=== PATIENT | female | born 1940 | race Caucasian/White ===

== ENCOUNTER 2016-12-27 08:33 | Day surgery (SDC) | payer MEDICARE, BC ==
--- NOTE | ~2016-12-27 | EGD ---
EGD REPORT [facility] [address] [address] NAME: GENESIS TORRE : [birth year] STATUS : REG [facility]#: [id number] AGE: 76 ADM/REG DATE : 12/27/16 MR#: [id number] REPORT SERV DATE: 12/27/16 DICTATED BY: NONA HERNANDES DATE: 12/27/16 REPORT STATUS : Draft TRANSCRIBED BY: [employer] DATE: 12/27/16 [facility] Center Patient Name: Genesis Torre Date of : 1940 Attending MD: NONA HERNANDES MD Procedure Date No Time: 12/27/2016 Procedure: Colonoscopy Indications: Clinically significant diarrhea of unexplained origin, Rectal bleeding, Fecal incontinence Referring MD: ALEJANDRO MEI MD Medicines: as per anesthesia Complications: No immediate complications. Procedure: Pre-Anesthesia Assessment: - ASA Grade Assessment: III - A patient with severe systemic disease. After I obtained informed consent, the scope was passed under direct vision. Throughout the procedure, the patient's blood pressure, pulse, and oxygen saturations were monitored continuously. The PCF [id number] was introduced through the anus and advanced to the cecum, identified by appendiceal orifice and ileocecal valve. The colonoscopy was somewhat difficult due to restricted mobility of the colon, significant looping and a tortuous colon. The patient tolerated the procedure. The quality of the bowel preparation was adequate to identify polyps. Findings: The perianal and digital rectal examinations were normal. Internal hemorrhoids were found during endoscopy and were mild. Four biopsies were obtained in the rectum and in the ascending colon with cold forceps for histology. Impression: - Internal hemorrhoids. - Four biopsies were obtained in the rectum and in the ascending colon. Recommendation: - Await pathology results. Procedure Code(s): --- Professional --- 27564, Colonoscopy, flexible, proximal to splenic flexure; with biopsy, single or multiple Diagnosis Code(s): --- Professional --- K64.8, Other hemorrhoids EGD REPORT [facility] [address] [address] NAME: GENESIS TORRE : [birth year] STATUS : REG [facility] PAT#: [id number] AGE: 76 ADM/REG DATE : 12/27/16 MR#: [id number] REPORT SERV DATE: 12/27/16 DICTATED BY: NONA HERNANDES. DATE: 12/27/16 REPORT STATUS : Draft TRANSCRIBED BY: [employer] DATE: 12/27/16 R19.7, Diarrhea, unspecified K62.5, Hemorrhage of anus and rectum R15.9, Full incontinence of feces CPT copyright 2013 [employer]. All rights reserved. The codes documented in this report are preliminary and upon wage and salary administrator review may be revised to meet current compliance requirements. NONA HERNANDES MD 12/27/2016 11:35 AM This report has been signed electronically. Number of Addenda: 0 Note Initiated On: 12/27/2016 10:34 AM Scope Withdrawal Time 0 hours 6 minutes 59 seconds [address] [address]
--- NOTE | ~2016-12-27 | EGD ---
EGD REPORT [facility] [address] [address] NAME: GENESIS INIGUEZ : [birth year] STATUS : REG [facility]#: [id number] AGE: 76 ADM/REG DATE : 12/27/16 MR#: [id number] REPORT SERV DATE: 12/27/16 DICTATED BY: NONA HERNANDES DATE: 12/27/16 REPORT STATUS : Draft [facility]IBED [facility]: [facility] DATE: 12/27/16 Endoscopy Center Patient Name: Genesis Iniguez Date of : 1940 Attending MD: NONA HERNANDES MD Procedure Date No Time: 12/27/2016 Procedure: Upper GI endoscopy Indications: Heartburn, Suspected esophageal reflux, Unexplained chest pain, Diarrhea Referring MD: ALEJANDRO MEI MD Medicines: as per anesthesia Complications: No immediate complications. Procedure: Pre-Anesthesia Assessment: - ASA Grade Assessment: III - A patient with severe systemic disease. After obtaining informed consent, the endoscope was passed under direct vision. Throughout the procedure, the patient's blood pressure, pulse, and oxygen saturations were monitored continuously. The GIF [id number] was introduced through the mouth, and advanced to the third part of duodenum. The upper GI endoscopy was accomplished without difficulty. The patient tolerated the procedure well. Findings: The examined esophagus was normal. A medium-sized hiatus hernia was present. Localized mild inflammation characterized by erythema was found in the gastric antrum. Biopsies were taken with a cold forceps for histology. The examined duodenum was normal. Biopsies were taken with a cold forceps for histology. Impression: - Normal esophagus. - Hiatus hernia. - Gastritis. Biopsied. - Normal examined duodenum. Biopsied. Recommendation: - Await pathology results. - Follow an antireflux regimen. - Continue present medications. Procedure Code(s): --- Professional --- 85960, Esophagogastroduodenoscopy, flexible, transoral; with biopsy, single or multiple EGD REPORT [facility] [address] [place], [place] [address]. [address] NAME: GENESIS INIGUEZ : [birth year] STATUS : REG [facility]#: [id number] AGE: 76 ADM/REG DATE : 12/27/16 MR#: [id number] REPORT SERV DATE: 12/27/16 DICTATED BY: NONA HERNANDES. DATE: 12/27/16 REPORT STATUS : Draft TRANSCRIBED BY: [employer] DATE: 12/27/16 Diagnosis Code(s): --- Professional --- K44.9, Diaphragmatic hernia without obstruction or gangrene K29.70, Gastritis, unspecified, without bleeding R12, Heartburn R07.9, Chest pain, unspecified R19.7, Diarrhea, unspecified CPT copyright 2013 [employer]. All rights reserved. The codes documented in this report are preliminary and upon luggage liner review may be revised to meet current compliance requirements. NONA HERNANDES MD 12/27/2016 10:55 AM This report has been signed electronically. Number of Addenda: 0 Note Initiated On: 12/27/2016 10:37 AM Scope Withdrawal Time 0 hours 0 minutes 0 seconds [address] [facility] [place] [address]
[~2016-12-27 08:33] MED LIST: ACET500CAP PO; CALTRA600D PO; CELEXA20 PO; HALF81 PO; LEVOTHYROXIN25 MCG PO; MULTIPLE VIT PO; NORV5 PO; PRAVAC PO; PRILO PO; VASOTEC10 PO; X5 PO; ZOCOR20 PO
== END 2016-12-27 23:59 | disposition home or self-care (01) ==
LOC: DMU 08:33
PROVIDERS: Internal Medicine Gastroenterology
PROC: 0DB68ZX Excision of Stomach, Via Natural or Artificial Opening Endoscopic, Diagnostic (ICD-10-PCS; 2016-12-27)
PROC: 0DB98ZX Excision of Duodenum, Via Natural or Artificial Opening Endoscopic, Diagnostic (ICD-10-PCS; 2016-12-27)
PROC: 0DBK8ZX Excision of Ascending Colon, Via Natural or Artificial Opening Endoscopic, Diagnostic (ICD-10-PCS; principal; 2016-12-27 10:00)
PROC: 0DBP8ZX Excision of Rectum, Via Natural or Artificial Opening Endoscopic, Diagnostic (ICD-10-PCS; 2016-12-27 10:00)
DX: K52.832 Lymphocytic colitis (principal); K64.8 Other hemorrhoids; K29.70 Gastritis, unspecified, without bleeding; K44.9 Diaphragmatic hernia without obstruction or gangrene; K21.9 Gastro-esophageal reflux disease without esophagitis; I10 Essential (primary) hypertension; E03.9 Hypothyroidism, unspecified; E78.00 Pure hypercholesterolemia, unspecified; M19.90 Unspecified osteoarthritis, unspecified site; H91.90 Unspecified hearing loss, unspecified ear; F41.9 Anxiety disorder, unspecified; F32.9 Major depressive disorder, single episode, unspecified; Z79.82 Long term (current) use of aspirin; Z79.899 Other long term (current) drug therapy; Z87.891 Personal history of nicotine dependence; Z98.41 Cataract extraction status, right eye; Z98.42 Cataract extraction status, left eye; Z96.1 Presence of intraocular lens; Z90.89 Acquired absence of other organs; Z90.49 Acquired absence of other specified parts of digestive tract; Z96.653 Presence of artificial knee joint, bilateral; Z98.890 Other specified postprocedural states
CPT/HCPCS: 88305; J0290; J1580